=== PATIENT | male | born 1960 | race Caucasian/White ===

== ENCOUNTER → 2018-02-24 | Outpatient (CLI) | payer OTHER ==
--- NOTE | 2018-02-24 12:45 | PCVCIMAG ---
APPROVED REPORT Study performed: 02/24/2018 09:37:26 Exam: Stress Echocardiogram Indication: Chest pain Patient Location: Echo lab Stress Nurse: Mery Armenta RN Room #: 1 Status: routine Ht: 5 ft 11 in HR: 60 bpm BP: 122/64 mmHg Rhythm: NSR Medical History Medical History: Hyperlipidemia Cardiac Risk Factors: Hyperlipidemia Previous Cardiac Procedures: none Pretest Chest Pain Characteristics: Exertional Chest pain Exercise History: Physically active Procedure The patient underwent an Exercise Stress Test using the Julian Protocol. Blood pressure, heart rate, and EKG were monitored. An Echocardiogram was performed by plant maintenance technician in four stages in quad fashion. At peak stress, four selected images were obtained and placed side by side with resting images for comparison. Stress Test Details Stress Test: Exercise stress testing was performed using a Julian protocol. HR Resting HR: 60 bpmMax Heart Rate (APMHR): 162 bpm Max HR Achieved: 150 bpmTarget HR (85% APMHR): 137 bpm % of APMHR: 92 Recovery HR: 70 bpm HR response to stress: Normal HR response to stress BP Resting BP: 122/64 mmHg Max BP: 160/60 mmHg Recovery BP: 110/70 mmHg ECG Resting ECG: Sinus Rhythm Stress ECG: Sinus Rhythm ST Change: Non-ischemic Arrhythmia: rare PVCs Recovery ECG: Sinus Rhythm Recovery ST Change: Non-ischemic Recovery Arrhythmia: None Clinical Reason for Termination: Maximal effort Stress Symptoms: Chest pain, Fatigue Exercise duration: 12 min sec Highest Stage Achieved: Stage 4: 4.2 mph at 16% grade. Exercise capacity: 13.7 METs Overall Exercise Capacity for Age: Good Scale: Active Angina Score: Non-Limiting Symptoms resolved during recovery. Stress ECG Conclusion The patient exercised according to the JULIAN protocol for 12:00 mins; achieving a work level of 13.7 METS. The resting heart rate of 60 bpm kandice to a maximum heart rate of 150 bpm. This value represent 92% of the maximal, age-predicted heart rate. The resting blood pressure of 122/64mmHg, kandice to a maximum blood pressure of 160/60 mmHg. The exercise test was stopped due to fatigue . Pre-Stress Echo The resting Echocardiogram showed normal left ventricular contractility with an estimated Ejection Fraction of about 55-60%. Normal wall motion in all segments on baseline images. Post-Stress Echo The stress Echocardiogram showed abnormal left ventricular contractility with an estimated Ejection Fraction of about 55-60%. The stress Echocardiogram demonstrated wall motion abnormality in the distal anterior,septal lai and apex . Conclusion Clinical Response: Ischemic Exercise Capacity: Superior Stress ECG Response: Non-ischemic Stress Echo Images: Ischemic Abnormal stress echo with with hypokinesis of the distal septal and anterior lai and apex. No prior study available for comparison. <Conclusion> Abnormal stress echo with with hypokinesis of the distal septal and anterior lai and apex.
== END | disposition home or self-care (01) ==
LOC: PCVCIMAG 09:24
PROVIDERS: ATTEND Family Medicine
DX: R07.9 Chest pain, unspecified (principal); E78.5 Hyperlipidemia, unspecified
CPT/HCPCS: 93325; 93351

== ENCOUNTER → 2018-03-06 | Outpatient (CLI) | payer OTHER ==
--- NOTE | 2018-03-06 15:57 | PCVCIMAG ---
EXAM: DUPLEX ULTRASOUND OF THE RIGHT GROIN INDICATION: Groin swelling and pain. FINDINGS: No pseudoaneurysm is present. The common femoral artery and vein are patent. No arteriovenous fistula is seen. IMPRESSION: Study is negative for pseudoaneurysm. LOC:[id number]
== END | disposition home or self-care (01) ==
LOC: PCVCIMAG 14:53
PROVIDERS: ATTEND Internal Medicine Cardiovascular Disease
DX: M79.89 Other specified soft tissue disorders (principal); R10.31 Right lower quadrant pain
CPT/HCPCS: 93926